=== PATIENT | female | born 1955 | race Caucasian/White ===

== ENCOUNTER 2021-02-04 14:44 | Outpatient (CLI) | payer MEDICARE, SELFPAY ==
--- NOTE | ~2021-02-04 | XR_ITS ---
EXAMINATION: XR chest 2V DATE: 02/04/2021 15:50 INDICATION: Shortness of breath TECHNIQUE: PA and lateral views of the chest are obtained. COMPARISON: None available FINDINGS: The lungs are free of acute opacities. There is no pleural effusion or pneumothorax. The ca rdiomediastinal silhouette is normal. There is moderate thoracic spondylosis. Surgical clips in the r ight upper quadrant are likely from prior cholecystectomy. IMPRESSION: 1. No acute cardiopulmonary abnormality. Reviewed, dictated and finalized at location A.
--- NOTE | 2021-02-04 17:29 | P.PCNPFT_ITS ---
PFT Interpretation This is a pulmonary function test with pre and post-bronchodilator spirometry, plethysmography and diffusing capacity. The test was performed and results interpreted in accordance with the 2019 and 2005 ATS/ERS Task Force guidelines respectively using the Global Lung Function Initiative-2012 reference equations. Patient demonstrated good effort and c ooperation. Reproducibility criteria were met. The quality of the pre bronchodilator spirometry maneuver was Grade A and post bronchodilator spirometry maneuver was Grade A. Findings: Spirometry: The contour the inspiratory and expiratory flowed tracing are normal. The pre bronchodilator FVC is 3.72 L, 107% predicted. The pre bronchodilator FEV1 is 2.83 L, 106% predicted. The FEV1: FVC C ratio 76%. The post bronchodilator FVC is 3.62 L, representing a 3% decrease. The post bronchodilator FEV1 is 2.83 L, representing no change. Plethysmography: The total lung capacity is 5.38 L, 95% predicted. The functional residual capacity is 2.06 L, 63% predicted. The residual volume is 1.60 L, 70% predicted. Diffusing capacity: The absolute diffusion capacity is 18.9, 83% predicted. Th e diffusing capacity corrected for alveolar volume is 3.66, 88% predicted. Impression: The spirometry is normal without evidence of an obstructive abnormality. There is no significant improvement after inhaling a single dose of albuterol. There is a reduction in the functional residual capacity with a normal total lung capacity. This is an abnormal but nonspecific lung volume pattern. The diffusing capacity is normal. There are no prior studies for comparison PFT Procedure Performed PFT Procedure Performed Spirometry with Pre/Post Bronchodilator Plethysmography (Lung Vol) Diffusing Cap (DLCO)
== END 2021-02-04 14:45 | disposition home or self-care (01) ==
PROVIDERS: PCP Family Medicine; Visit Provider Family Medicine
DX: R06.00 Dyspnea, unspecified (principal)
CPT/HCPCS: 71046; 94060; 94726; 94729